=== PATIENT | female | born 1950 | race Caucasian/White ===

== ENCOUNTER 2018-03-03 06:23 | Day surgery (SDC) | payer OTHER ==
[2018-02-28 10:35] LABS: Absolute Lymphocytes (CBC) 1.3 K/uL (0.7-4.9); Absolute Monocytes 0.4 K/uL (0.1-1.3); Absolute Neutrophil 2.7 K/uL (1.8-8.0); Basophils % 0.8 % (0-1.3); Eosinophils % 10.2 % (0-4.4); Lymphocytes % 27.1 % (15.3-44.8); MCH 32.3 pg (27.0-35.0); MCV 93.5 fL (80-100); MPV 9.6 fL (7.6-11.3); Monocytes % 7.3 % (3.3-12.3); RBC Red Blood Cell Count 4.49 M/uL (3.86-4.86)
[2018-02-28 10:49] LABS: Potassium 4.4 mmol/L (3.5-5.1); Protime INR 1.01
[2018-03-03] MEDS ORDERED: NA CHLORIDE 0.9% 1,000 ML ONE (06:35)
[2018-03-03] MEDS ORDERED: CEFAZOLIN/SWI 1gm 1 GM/10 ML SYR ONE (06:36)
[2018-03-03] MEDS ORDERED: PROPOFOL 200 MG/20 ML VIAL IV ONE (07:22)
[2018-03-03] MEDS ORDERED: FENTANYL CITR 100 MCG/2 ML ONE (07:22)
[2018-03-03] MEDS ORDERED: MIDAZOLAM HCL 2 MG/2 ML INJ ONE ×2 (07:22→07:33)
[2018-03-03] MEDS ORDERED: LIDOCAINE 2% MPF 5 ML VIAL ONE (07:22)
[2018-03-03] MEDS ORDERED: ONDANSETRON HCL 40 MG/20 ML VIAL ONE (07:22)
[2018-03-03] MEDS ORDERED: BUPIVACAINE 0.25% PF 10 ML VIAL ONE (07:27)
--- NOTE | 2018-03-03 08:54 | P.BOP ---
Preoperative diagnosis: right knee lateral meniscus tear Postoperative diagnosis: same, chondromalacia medial femoral condyle, lateral femoral condyle Primary procedure: right knee arthroscopic partial lateral meniscectomy Secondary procedure: right knee chondroplasty lateral femoral condyle Make Up Editor: NONE,NONE Estimated blood loss: <5 cc Specimen: none Findings: see dictation Anesthesia: General Complications: None Implants: none Fluids & blood products: per anesthesia; TT: 37 mins @ 300 mmHg Transferred to: Recovery Room Condition: Good
[2018-03-03] MEDS ORDERED: MEPERIDINE HCL 50 MG/ML AMP ONE (09:05)
[2018-03-03] MEDS ORDERED: PROMETHAZINE 25 MG/ML VIAL ONE (09:11)
[2018-03-03] MEDS ORDERED: NA CHLORIDE 0.9% 500 ML ONE (09:34)
[2018-03-03] MEDS: MORPHINE 4 MG/ML SYR ONE ×5 (09:35→09:54)
[2018-03-03] MEDS ORDERED: HYDROCODONE/APAP 7.5/325 MG TAB PO ONE (11:05)
[2018-03-03] MEDS ORDERED: HYDROCODONE/APAP 7.5/325 MG TAB ONE (11:11)
--- NOTE | 2018-03-03 21:51 | OP ---
Date of Procedure: 03/03/2018 Surgeon: Sami Shaw MD Preoperative Diagnosis: Right knee lateral meniscus tear. Postoperative Diagnoses: 1. Right knee lateral meniscus tear. 2. 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 Procedure Performed: Right knee arthroscopic, partial lateral meniscectomy, right knee arthroscopic chondroplasty of lateral femoral condyle. Anesthesia: General LMA. Fluids: Per Anesthesia record. Estimated Blood Loss: Less than 5 cc. Implants: None. Complications: None. Tourniquet Time: 37 minute at 300 mmHg. Indication For Procedure: Rosaura is a 67-year-old female presented to my clinic with physical exam findings and MRI findings consistent with a lateral meniscus tear. I discussed with the patient at length risks and benefits associated with operative and nonoperative treatment. She expressed understanding and elected to proceed with operative treatment. Description Of Procedure: After informed consent was obtained, the patient was identified in the preoperative holding area. The right lower extremity was marked. The patient was taken back to the operative room, transferred to the operating table in supine fashion, and placed under general LMA anesthesia. The right lower extremity was then examined. The patient has full range of motion of right knee. No instability noted. Right lower extremity was then prepped and draped in usual sterile fashion. A time-out was initiated. The correct patient and procedure were confirmed and identified. The patient had received preoperative prophylactic antibiotics. The right lower extremity was then exsanguinated with an Esmarch and the tourniquet was inflated to 300 mmHg. Standard anteromedial and anterolateral portal were created. Arthroscope was brought into the anterolateral portal. Diagnostic arthroscopy was performed. Arthroscope was first brought into the patellofemoral joint where the patient was noted to have grade 4 chondromalacia with the closed bone over the medial femoral condyle. There was some fraying over the undersurface of the patella. The arthroscope was then brought into medial gutter. There were no loose bodies found in the gutter or the lateral gutter. The arthroscope was then brought into the medial compartment. The patient was noted to have some fissuring and grade 2 chondromalacia changes of the medial femoral condyle. The medial meniscus was found to be stable to probing. No significant pathology noted. The arthroscope was then brought into intercondylar notch and the patient was noted to have an intact ACL and PCL. The arthroscope was then brought in the lateral compartment where the patient noted to have a complex tear of the lateral meniscus body and posterior horn. There was a radial component tear at the posterior horn near the posterior root. The tear was then debrided. Partial lateral meniscectomy was then performed using meniscal biters and an arthroscopic shaver to smooth borders. Probe was then introduced. There was no instability noted of the lateral meniscus. The patient was also noted to have chondromalacia of the lateral femoral condyle and full-thickness chondral injury noted. There was a small chondral flap over the lateral femoral condyle and using a meniscal biter and arthroscopic shaver, a chondroplasty was performed and the lateral femoral condyle was debrided with no loose chondral flaps. Arthroscopic instruments were then removed without complications. The portals were approximated using a 3-0 Monocryl. Sterile dressings were applied. Tourniquet was let down. The patient awakened and transferred to PACU in stable condition. Postoperative Plan: She will be weightbearing as tolerated on her right lower extremity. Physical Therapy will be consulted, and she will follow up in my clinic next week for wound check. TIMI/MOSHE Voice ID: [id number] Report ID: [id number] SHANE
== END 2018-03-03 11:25 | disposition home health service (06) ==
LOC: OR 06:23
PROVIDERS: ATTEND Orthopaedic Surgery Sports Medicine
PROC: 0SBC4ZZ Excision of Right Knee Joint, Percutaneous Endoscopic Approach (ICD-10-PCS; principal; 2018-03-03 07:30)
DX: S83.281A Other tear of lateral meniscus, current injury, right knee, initial encounter (principal); M94.261 Chondromalacia, right knee; I10 Essential (primary) hypertension; E07.9 Disorder of thyroid, unspecified
CPT/HCPCS: 29881; 36415; 80048; 85025; 85610; 85730; J0690; J2175; J2250 ×2; J2405; J2550; J3010; J7030

== ENCOUNTER 2018-05-28 18:21 | Emergency (ER) | payer OTHER ==
[2018-05-28] MEDS ORDERED: ACETAMINOPHEN 500 MG TAB ONE (19:44)
[2018-05-28] MEDS ORDERED: HYDROCODONE/CHLORPHEN 5 ML/OSYR ONE (19:44)
--- NOTE | 2018-05-28 19:54 | RAD REPORT ---
EXAM DESCRIPTION: RAD - Chest Pa And Lat (2 Views) - 05/28/2018 7:43 pm CLINICAL HISTORY: COUGH Chest pain. COMPARISON: Chest Single View dated 02/20/2017; CHEST PA AND LAT 2 VIEW dated 08/22/2013; CHEST PA AND LAT 2 VIEW dated 03/01/2009 FINDINGS: The lungs are mildly emphysematous but clear. The heart is mildly prominent. No displaced fractures. IMPRESSION: Mild COPD.
--- NOTE | 2018-05-28 20:20 | ER ---
Nurse's Notes [facility] Name: Rosaura Fernández Age: 67 yrs Sex: Female : 1950 Arrival Date: 05/28/2018 Time: 18:25 Bed 6 Private MD: Cody Callaway Diagnosis: Bronchitis, not specified as acute or chronic Presentation: 05/28 18:38 Presenting complaint: Patient states: yeimi been sick for 3 days now, fever, chills, hj nasal congestion, sore throat, cough; denies taking meds RIBBON TIER; reports nausea;. Transition of care: patient was not received from another setting of care. Onset of symptoms was May 28, 2018. Risk Assessment: Do you want to hurt yourself or someone else? Patient reports no desire to harm self or others. Initial Sepsis Screen: Does the patient meet any 2 criteria? RR > 20 per min. Temp <36.0*C (96.8*F)) or > 38.3*C (100.9*F). HR > 90 bpm. Does the patient have a suspected source of infection? Yes: Productive cough/pneumonia. Care prior to arrival: None. 18:38 Method Of Arrival: Ambulatory 18:38 Acuity: NIRMAL 4 hj Triage Assessment: 18:41 General: Appears in no apparent distress. uncomfortable, Behavior is calm, cooperative, hj appropriate for age. Pain: Complains of pain in throat. EENT: No signs and/or symptoms were reported regarding the EENT system. Neuro: Level of Consciousness is awake, alert, obeys commands, Oriented to person, place, time, situation, Appropriate for age. Cardiovascular: Capillary refill < 3 seconds Patient's skin is warm and dry. Respiratory: Reports cough that is Airway is patent Respiratory effort is even, unlabored, Respiratory pattern is regular, symmetrical. GI: No signs and/or symptoms were reported involving the gastrointestinal system. : No signs and/or symptoms were reported regarding the genitourinary system. Derm: No signs and/or symptoms reported regarding the dermatologic system. Musculoskeletal: No signs and/or symptoms reported regarding the musculoskeletal system. Historical: - Allergies: 18:40 No Known Allergies; hj - Home Meds: 18:40 anastrozole 1 mg oral tab 1 tab once daily [Active]; levothyroxine 50 mcg tab 1 tab hj once daily [Active]; - PMHx: 18:40 breast cancer; hj - PSHx: 18:40 Cholecystectomy; Knee surgery; left mastectomy; hj - Immunization history:: Adult Immunizations up to date. - Social history:: Smoking status: Patient/guardian denies using tobacco, Patient/guardian denies using alcohol. - Ebola Screening: : Patient negative for fever greater than or equal to 101.5 degrees Fahrenheit, and additional compatible Ebola Virus Disease symptoms Patient denies exposure to infectious person Patient denies travel to an Ebola-affected area in the 21 days before illness onset. Screenin:41 Abuse screen: Denies threats or abuse. Denies injuries from another. Nutritional hj screening: No deficits noted. Tuberculosis screening: No symptoms or risk factors identified. Fall Risk None identified. Assessment: 18:42 Reassessment: see triage for assessment;. hj 18:51 Reassessment: awaiting provider at bed side;. hj 19:32 General: Appears in no apparent distress. uncomfortable, Behavior is calm, cooperative, ea appropriate for age, Pt taken to radiology. Neuro: Level of Consciousness is awake, alert, obeys commands, Oriented to person, place, time, situation. Cardiovascular: Patient's skin is warm and dry. Respiratory: Airway is patent Respiratory effort is even, unlabored, Respiratory pattern is regular, symmetrical, Parent/caregiver reports the patient having cough that is. GI: No signs and/or symptoms were reported involving the gastrointestinal system. : No signs and/or symptoms were reported regarding the genitourinary system. Derm: Skin is pink, warm \T\ dry. 20:41 Reassessment: Patient and/or family updated on plan of care and expected duration. Pain ea level reassessed. Patient is alert, oriented x 3, equal unlabored respirations, skin warm/dry/pink. Discharge instructions given to patient, verbalized the understanding of instruction. Vital Signs: 18:42 BP 138 / 87; Pulse 100; Resp 18; Temp 100.7(O); Pulse Ox 95% on R/A; Weight 72.57 kg; hj Height 5 ft. 10 in. (177.80 cm); Pain 5/10; 20:30 BP 128 / 70; Pulse 87; Resp 19; Temp 99; Pulse Ox 96% ; ea 18:42 Body Mass Index 22.96 (72.57 kg, 177.80 cm) ED Course: 18:25 Patient arrived in ED. mr 18:25 Cody Callaway MD is Private Physician. mr 18:38 Chris Avendaño, RN is Primary Nurse. hj 18:40 Triage completed. hj 18:42 Arm band placed on right wrist. hj 18:42 Patient has correct armband on for positive identification. Bed in low position. Call light in reach. Side rails up X 1. 18:53 Manuel Cr NP is PHCP. pm1 18:53 Nino Stevens MD is Attending Physician. pm1 19:42 Chest Pa And Lat (2 Views) XRAY In Process Unspecified. EDMS 20:42 No provider procedures requiring assistance completed. Patient did not have IV access ea during this emergency room visit. Administered Medications: 19:37 Drug: Tussionex Pennkinetic ER 5 ml Route: PO; ea 20:38 Follow up: Response: No adverse reaction; Marked relief of symptoms ea 19:37 Drug: Tylenol 1000 mg Route: PO; ea 20:28 Follow up: Response: No adverse reaction; Marked relief of symptoms ea Outcome: 20:19 Discharge ordered by MD. pm1 20:42 Discharged to home ambulatory, with family. ea 20:42 Condition: good 20:42 Discharge instructions given to patient, Instructed on discharge instructions, follow up and referral plans. medication usage, Demonstrated understanding of instructions, follow-up care, medications, Prescriptions given X 3. 20:46 Patient left the ED. ea Signatures: Dispatcher [employer] [facility] Yuly Romero mr Chris Avendaño RN RN Manuel Cr NP SQL SERVER DBA DEVELOPER pm1 Anita Perez RN RN ea
--- NOTE | 2018-05-28 20:20 | EDPHYS ---
Physician Documentation [facility] Name: Rosaura Fernández Age: 67 yrs Sex: Female : 1950 Arrival Date: 05/28/2018 Time: 18:25 Bed 6 Private MD: Cody Callaway ED Physician Nino Stevens HPI: 05/28 19:30 This 67 yrs old Female presents to ER via Ambulatory with complaints of Cough.pm1 19:30 The patient or guardian reports cough, with no sputum. Onset: The symptoms/episode pm1 began/occurred 3 day(s) ago. Severity of symptoms: in the emergency department the symptoms are actually worse. Modifying factors: The symptoms are alleviated by Tylenol, the symptoms are aggravated by nothing. Associated signs and symptoms: Pertinent positives: chest pain, fever, sore throat, Nasal congestion, chills, Pertinent negatives: chest pain, shortness of breath. The patient has not recently seen a physician, the patient's primary care provider is Dr. Callaway. Historical: - Allergies: 18:40 No Known Allergies; hj - Home Meds: 18:40 anastrozole 1 mg oral tab 1 tab once daily [Active]; levothyroxine 50 mcg tab 1 tab hj once daily [Active]; - PMHx: 18:40 breast cancer; hj - PSHx: 18:40 Cholecystectomy; Knee surgery; left mastectomy; hj - Immunization history:: Adult Immunizations up to date. - Social history:: Smoking status: Patient/guardian denies using tobacco, Patient/guardian denies using alcohol. - Ebola Screening: : Patient negative for fever greater than or equal to 101.5 degrees Fahrenheit, and additional compatible Ebola Virus Disease symptoms Patient denies exposure to infectious person Patient denies travel to an Ebola-affected area in the 21 days before illness onset. ROS: 19:30 Eyes: Negative for injury, pain, redness, and discharge. pm1 19:30 Neck: Negative for injury, pain, and swelling, Cardiovascular: Negative for chest pain, palpitations, and edema. 19:30 Abdomen/GI: Negative for abdominal pain, nausea, vomiting, diarrhea, and constipation, Back: Negative for injury and pain, : Negative for injury, bleeding, discharge, and swelling, MS/Extremity: Negative for injury and deformity, Skin: Negative for injury, rash, and discoloration, Neuro: Negative for headache, weakness, numbness, tingling, and seizure. 19:30 Constitutional: Positive for chills, fever. 19:30 ENT: Positive for sore throat, Nasal congestion. 19:30 Respiratory: Positive for cough, Negative for shortness of breath, sputum production, wheezing. Exam: 19:30 Constitutional: This is a well developed, well nourished patient who is awake, alert, pm1 and in no acute distress. Head/Face: Normocephalic, atraumatic. Eyes: Pupils equal round and reactive to light, extra-ocular motions intact. Lids and lashes normal. Conjunctiva and sclera are non-icteric and not injected. Cornea within normal limits. Periorbital areas with no swelling, redness, or edema. ENT: Nares patent. No nasal discharge, no septal abnormalities noted. Tympanic membranes are normal and external auditory canals are clear. Oropharynx with no redness, swelling, or masses, exudates, or evidence of obstruction, uvula midline. Mucous membranes moist. Neck: Trachea midline, no thyromegaly or masses palpated, and no cervical lymphadenopathy. Supple, full range of motion without nuchal rigidity, or vertebral point tenderness. No Meningismus. Chest/axilla: Normal chest wall appearance and motion. Nontender with no deformity. No lesions are appreciated. Cardiovascular: Regular rate and rhythm with a normal S1 and S2. No gallops, murmurs, or rubs. No pulse deficits. Respiratory: Lungs have equal breath sounds bilaterally, clear to auscultation and percussion. No rales, rhonchi or wheezes noted. No increased work of breathing, no retractions or nasal flaring. Abdomen/GI: Soft, non-tender, with normal bowel sounds. No distension or tympany. No guarding or rebound. No evidence of tenderness throughout. Back: No spinal tenderness. No costovertebral tenderness. Full range of motion. Skin: Warm, dry with normal turgor. Normal color with no rashes, no lesions, and no evidence of cellulitis. MS/ Extremity: Pulses equal, no cyanosis. Neurovascular intact. Full, normal range of motion. 19:30 Neuro: Orientation: is normal, Motor: is normal, moves all fours. Vital Signs: 18:42 BP 138 / 87; Pulse 100; Resp 18; Temp 100.7(O); Pulse Ox 95% on R/A; Weight 72.57 kg; hj Height 5 ft. 10 in. (177.80 cm); Pain 5/10; 20:30 BP 128 / 70; Pulse 87; Resp 19; Temp 99; Pulse Ox 96% ; ea 18:42 Body Mass Index 22.96 (72.57 kg, 177.80 cm) hj MDM: 18:53 Patient medically screened. pm1 20:16 Data reviewed: vital signs. Data interpreted: Pulse oximetry: on room air is 95 %. pm1 Interpretation: normal. 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 05/28 19:19 Order name: Flu; Complete Time: 20:11 pm1 05/28 19:19 Order name: Strep; Complete Time: 20:11 pm1 05/28 19:20 Order name: Chest Pa And Lat (2 Views) XRAY; Complete Time: 20:11 pm1 05/28 20:04 Order name: Throat Culture EDMS Administered Medications: 19:37 Drug: Tussionex Pennkinetic ER 5 ml Route: PO; ea 20:38 Follow up: Response: No adverse reaction; Marked relief of symptoms ea 19:37 Drug: Tylenol 1000 mg Route: PO; ea 20:28 Follow up: Response: No adverse reaction; Marked relief of symptoms ea Disposition: 05/28/18 20:19 Discharged to Home. Impression: Bronchitis, not specified as acute or chronic. - Condition is Stable. - Discharge Instructions: Acute Bronchitis, Adult. - Prescriptions for Medrol (Landry) 4 mg Oral Tablets, Dose Pack - take 1 tablet by ORAL route as directed - follow package instructions; 1 packet. Albuterol Sulfate 90 mcg/actuation - inhale 1-2 puff by INHALATION route every 4-6 hours; 1 Inhaler. Guaifenesin AC 10- 100 mg/5 mL Oral Liquid - take 10 milliliter by ORAL route every 4 hours As needed; 240 milliliter. - Medication Reconciliation Form, Thank You Letter, Antibiotic Education form. - Follow up: Emergency Department; When: As needed; Reason: Worsening of condition. Follow up: Private Physician; When: 2 - 3 days; Reason: Recheck today's complaints, Continuance of care, Re-evaluation by your physician. - Problem is new. - Symptoms have improved. Addendum: 06/08/2018 15:45 Co-signature as Attending Physician, Nino Stevens MD Available for consultation at p s1 all times. . Signatures: Dispatcher [employer] EDMS Chris Avendaño, RN RN Manuel Fletcher NP LIVE HANGER pm1 Anita Perez RN RN ea Singer, Phillip, MD MD ps1 Corrections: (The following items were deleted from the chart) 05/28 20:46 20:19 05/28/2018 20:19 Discharged to Home. Impression: Bronchitis, not specified as ea acute or chronic. Condition is Stable. Forms are Medication Reconciliation Form, Thank You Letter, Antibiotic Education, Prescription Opioid Use. Follow up: Emergency Department; When: As needed; Reason: Worsening of condition. Follow up: Private Physician; When: 2 - 3 days; Reason: Recheck today's complaints, Continuance of care, Re-evaluation by your physician. Problem is new. Symptoms have improved. pm1
== END 2018-05-28 20:46 | disposition home or self-care (01) ==
LOC: ER 18:21
DX: J40 Bronchitis, not specified as acute or chronic (principal)
CPT/HCPCS: 71046; 87070; 87081; 87804; 99283

== ENCOUNTER 2020-04-02 16:32 | Observation (INO) | payer OTHER ==
--- OUTSIDE RECORDS SUMMARY | 2020-04-02 16:34 | XMS REPORT | Continuity of Care Document ---
:1950 Author Organization [facility] t Address [address] [place] [address] Care Team Providers Name Role Phone Lab, Fam Pob I Attending Clinician Unavailable Doctor Unassigned, Name Attending Clinician Unavailable Problems This patient has no known problems. Allergies, Adverse Reactions, Alerts This patient has no known allergies or adverse reactions. Medications This patient has no known medications. Procedures This patient has no known procedures. Encounters Start End Encounter Admission Attending Care Care Encounter Source Date/Time Date/Time Type Type Clinicians Facility Department ID 2020-02-21 2020-02-21 Laboratory Lab, Adc [facility] [id number] 08:46:11 09:06:11 Only Fam Pob I Health [id number] [place] [id number] Professio [phone] [address] 2020-02-21 2020-02-21 Letter Doctor LONNIE [id number] 00:00:00 00:00:00 (Out) UnassignedDEBBI [id number] [place] [facility] [phone] [id number] Results This patient has no known results.
--- OUTSIDE RECORDS SUMMARY | 2020-04-02 16:34 | XMS REPORT | Summary of Care ---
:1950 Author Organization [facility] Address [address] [place] [address] Care Team Providers Name Role Phone Lauri Chamberlain MD Primary Care Provider Encounter Details Date Type Department Care Team Description 02/21/2020 Letter (Out) [facility] Message s Doctor Unassigned, No [address] [facility] [place] [address] [address] [facility] [phone] [place] [address] Allergies Not on Filedocumented as of this encounter (statuses as of 02/21/2020) Medications Not on filedocumented as of this encounter (statuses as of 02/21/2020) Active Problems Not on filedocumented as of this encounter (statuses as of 02/21/2020) Social History Tobacco Use Types Packs/Day Years Used Date Never Assessed Sex Assigned at Date Recorded Not on file documented as of this encounter Last Filed Vital Signs Not on filedocumented in this encounter Plan of Treatment Date Type Specialty Care Team Description 02/21/2020 Laboratory Only Family Medicine Laney Paul, YUE [address] [address] Lab, Adc Fam Pob I Health Maintenance Due Date Last Done Comments HEPATITIS C (HCV) SCREEN 1950 Depression Screening 1961 DTaP,Tdap,and Td Vaccines (1 - Tdap) 1968 Breast Cancer Screening (MAMMOGRAM) 1989 COLON CANCER SCREENING ANNUAL FIT/FOBT 11/11/1999 COLON CANCER SCREENING FIT DNA EVERY 3 YEARS 11/11/1999 COLON CANCER SCREENING SIGMOIDOSCOPY EVERY 5 YEARS 11/11/1999 COLONOSCOPY 11/11/1999 Colorectal Cancer Screening 11/11/1999 Zoster Recombinant Vaccine (SHINGRIX) (1 of 2) 11/11/1999 Medicare Wellness Visit 2014 Osteoporosis Screening 2014 PNEUMOCOCCAL VACCINES 65+ (1 of 1 - PPSV23) 2014 INFLUENZA VACCINE (#1) 2020 documented as of this encounter Results Not on filedocumented in this encounter Insurance Payer Benefit Plan / Subscriber ID Effective Dates Phone Addre ss Type Group MEDICARE MEDICARE PART A [id number] 2014-Elizabeth [phone] & B t 82 [id number] JENS HUBBARD [id number] [employer] AETNA INDEMNITY [id number] 2016-[place] Indemnity t documented as of this encounter
--- OUTSIDE RECORDS SUMMARY | 2020-04-02 16:34 | XMS REPORT | Summary of Care ---
:1950 Author Organization [facility] Address [address] [place] [id number] Care Team Providers Name Role Phone Lauri Chamberlain MD Primary Care Provider Reason for Visit Reason Comments LAB Exposure Encounter Details Date Type Department Care Team Description 02/21/2020 Laboratory Only [facility] Family Lisbeth Paul, FINAL CLEANER [address] [place] [id number] Suspected Covid-19 [facility], [facility] Fam Pob I Virus Infection [address] [place] [address] (Primary D x) [place] [address] Allergies Not on Filedocumented as of this encounter (statuses as of 02/21/2020) Medications Not on filedocumented as of this encounter (statuses as of 02/21/2020) Active Problems Not on filedocumented as of this encounter (statuses as of 02/21/2020) Social History Tobacco Use Types Packs/Day Years Used Date Never Assessed Sex Assigned at Date Recorded Not on file COVID-19 Exposure Response Date Recorded In the last month, have you been in contact with No / Unsure 02/21/2020 9:13 AM CDT someone who was confirmed or suspected to have Coronavirus / COVID-19? documented as of this encounter Last Filed Vital Signs Not on filedocumented in this encounter Nursing Notes Shila Casey MA - 02/21/2020 8:50 AM CDTRosaura Fernández is a 69 year old female here for COVID Screening with a Nasopharyngeal Swab All droplet and contact precautions taken with appropriate PPE worn while interacting with patient. ? Goggles ? N95 Mask ? Gloves ? Gown RR 12 Pulse 69 Ox 95% Patient educated on plan of care for visit, swabbing technique, risks and benefits of test and length of time to receive results. Verbal consent obtained to perform test. CDC Fact Sheet for Patients nCoV Diagnostic Panel dated 08/19/2019 and Factsheet What to Do if Sick with COVID 19 07/30/19 provided. Bilate nares swabbed during COVID19 nasopharyngeal swab. Patient swabbed per appropriate nasopharyngeal technique, and patient tolerated well. Patient was discharged from the testing clinic in stable condition. SHILA CASEY MA 02/21/2020 9:13 AM documented in this encounter Plan of Treatment Name Type Priority Associated Diagnoses Order S chedule COVID-19 (PCR MOLECULAR LAB Routine Suspected Covid-1 9 Virus Expected: 02/21/2020, TESTING) Infection Expires: 2020 Health Maintenance Due Date Last Done Comments [...] Results Not on filedocumented in this encounter Visit Diagnoses Diagnosis Suspected Covid-19 Virus Infection - Kimberly [place] documented in this encounter Additional Health Concerns Infection Onset Date Last Indicated Resolved Time COVID-19 Rule Out 02/21/2020 02/21/2020 documented as of this encounter Insurance Payer Benefit Plan / Subscriber ID Effective Dates Phone Addre ss Type Group MEDICARE MEDICARE PART A [id number] 2014-Elizabeth [phone] Medicare & [address] [id number] JENS HUBBARD [id number] [employer] AETNA INDEMNITY [id number] 2016-Elizabeth rai documented as of this encounter
--- NOTE | 2020-04-02 17:30 | RAD REPORT ---
EXAM DESCRIPTION: Kapil Single View04/02/2020 5:05 pm CLINICAL HISTORY: Chest pain COMPARISON: 2017 FINDINGS: The lungs appear clear of acute infiltrate. The heart is normal size IMPRESSION: No acute abnormalities displayed
[2020-04-02 18:30] LABS: Absolute Lymphocytes (CBC) 1.4 K/uL (0.7-4.9); Basophils % 0.5 % (0-1.3); Hematocrit 41.2 % (36.0-45.0); Lymphocytes % 21.2 % (15.3-44.8); MPV 9.3 fL (7.6-11.3); RBC Red Blood Cell Count 4.42 M/uL (3.86-4.86)
[2020-04-02 18:31] LABS: ALT/SGPT 32 U/L (12-78); AST/SGOT 28 U/L (15-37); Albumin 3.6 g/dL (3.4-5.0); Alkaline Phosphatase 103 U/L (45-117); BUN Blood Urea Nitrogen 19 mg/dL (7-18); Bicarbonate 29 mmol/L (21-32); Bilirubin Direct < 0.1 mg/dL (0-0.2); Bilirubin Total 0.4 mg/dL (0.2-1.0); Glucose Level 101 mg/dL (74-106); Magnesium 2.1 mg/dL (1.8-2.4); NT PRO-BNP 86 pg/mL (<125); Protein, Total 7.2 g/dL (6.4-8.2); Sodium Level 140 mmol/L (136-145); Troponin (Emerg Dept Use Only) < 0.02 ng/mL (0.0-0.045)
--- NOTE | 2020-04-02 19:01 | ER ---
Nurse's Notes [facility] Name: Rosaura Fernández Age: 69 yrs Sex: Female : 1950 Arrival Date: 04/02/2020 Time: 16:33 Bed 6 Private MD: Diagnosis: Chest pain, unspecified Presentation: 04/02 16:41 Chief complaint: Patient states: Left sided chest pain for 24 hours. Radiates into left ll1 arm and shoulder. States she believes she pulled a muscle in her chest. Reports tenderness with palpation to left chest. Dr. Callaway's office sent her in for eval. Denies cough/SOB. Coronavirus screen: Client denies travel out of the [place] in the last 14 days. At this time, the client does not indicate any symptoms associated with coronavirus-19. Ebola Screen: Patient denies travel to an Ebola-affected area in the 21 days before illness onset. Initial Sepsis Screen: Does the patient meet any 2 criteria? No. Patient's initial sepsis screen is negative. Does the patient have a suspected source of infection? No. Patient's initial sepsis screen is negative. Risk Assessment: Do you want to hurt yourself or someone else? Patient reports no desire to harm self or others. Onset of symptoms was April 01, 2020. 16:41 Method Of Arrival: Ambulatory ll1 16:41 Acuity: NIRMAL 3 ll1 Historical: - Allergies: 16:43 No Known Allergies; ll1 - PMHx: 16:43 breast cancer; ll1 - PSHx: 16:43 Cholecystectomy; Knee surgery; bilat mastectomy; ll1 - Immunization history:: Flu vaccine is up to date. - Social history:: Smoking status: Patient denies any tobacco usage or history of. - Family history:: not pertinent. Screenin:16 Abuse screen: Denies threats or abuse. Denies injuries from another. Nutritional zb screening: No deficits noted. Tuberculosis screening: No symptoms or risk factors identified. Fall Risk None identified. No fall in past 12 months (0 pts). No secondary diagnosis (0 pts). IV access (20 points). Ambulatory Aid- None/Bed Rest/Nurse Assist (0 pts). Gait- Normal/Bed Rest/Wheelchair (0 pts) Mental Status- Oriented to own ability (0 pts). Total Petit Fall Scale indicates No Risk (0-24 pts). Assessment: 16:45 Reassessment: EKG performed and given to MD Valenzuela. zb 17:10 General: Appears in no apparent distress. comfortable, well groomed, Behavior is calm, zb cooperative, appropriate for age, Reports Denies fever, feeling ill, chills. Pain: Complains of pain in chest Pain radiates to left arm and back Pain began 2-3 days ago. Neuro: No deficits noted. Level of Consciousness is awake, alert, obeys commands, Oriented to person, place, time, situation. Cardiovascular: Reports chest pain, Denies lightheadedness, nausea, palpitations, shortness of breath, syncope, vomiting, Capillary refill < 3 seconds fingers Chest pain. Respiratory: No deficits noted. Airway is patent. GI: No deficits noted. No signs and/or symptoms were reported involving the gastrointestinal system. : No deficits noted. No signs and/or symptoms were reported regarding the genitourinary system. Derm: No deficits noted. No signs and/or symptoms reported regarding the dermatologic system. Skin is intact, is healthy with good turgor. Musculoskeletal: No deficits noted. No signs and/or symptoms reported regarding the musculoskeletal system. Capillary refill < 3 seconds, Range of motion: intact in all extremities. 18:28 Reassessment: Patient appears in no apparent distress at this time. Patient and/or ph family updated on plan of care and expected duration. Pain level reassessed. Patient is alert, oriented x 3, equal unlabored respirations, skin warm/dry/pink. Vital Signs: 16:30 BP 145 / 96; Pulse 72; Resp 18; Pulse Ox 99% on R/A; Weight 70.31 kg; Height 5 ft. 9 ph in. (175.26 cm); 16:41 BP 150 / 102; Pulse 79; Resp 17; Temp 98.8; Pulse Ox 100% ; Pain 6/10; ll1 17:30 BP 147 / 98; Pulse 80; Resp 16; Pulse Ox 99% on R/A; ph 18:38 BP 145 / 95; Pulse 73; Resp 18; Pulse Ox 100% on R/A; ph 16:30 Body Mass Index 22.89 (70.31 kg, 175.26 cm) ED Course: 16:33 Patient arrived in ED. ds1 16:36 Maru Valenzuela MD is Attending Physician. ma2 16:43 Triage completed. ll1 16:43 Arm band placed on Patient placed in an exam room, on a stretcher. ll1 17:04 XRAY Chest (1 view) In Process Unspecified. EDMS 17:09 Cindy De La Cruz, BHARATH is Primary Nurse. zb 17:15 Patient has correct armband on for positive identification. Placed in gown. Bed in low zb position. Call light in reach. Side rails up X 1. monitoring specialist on. Pulse ox on. NIBP on. Door closed. Noise minimized. Verbal reassurance given. Head of bed. 17:16 No provider procedures requiring assistance completed. Inserted saline lock: 20 gauge zb antecubital area, using aseptic technique. Patient maintains SpO2 saturation greater than 95% on room air. 18:37 Notified ED physician of a critical lab result(s). D-dimer 795. ph 19:00 Cody Callaway MD is Hospitalizing Provider. ma2 19:44 Patient admitted, IV remains in place. intact, No redness/swelling at site. sg Administered Medications: No medications were administered Outcome: 19:00 Decision to Hospitalize by Provider. ma2 19:44 Admitted to Tele accompanied by tech, via wheelchair, room 229, with chart, Report sg called to Estrella SINHA 19:44 Condition: stable 19:44 Instructed on the need for admit, safety practices, Demonstrated understanding of instructions. 19:45 Admitted to Med/surg accompanied by tech, via wheelchair, room 229, Other sbar, ekg rv Report called to estrella sinha 19:45 Condition: good 19:45 Instructed on the need for admit. 19:51 Patient left the ED. rv Signatures: Dispatcher [employer] EDMS Saul Stiles RN RN Jenna Falcon ds1 Jacqueline Savage RN RN Maru Valenzuela MD MD tx2 Maximilian Dubois RN RN rv Cristopher Norman RN RN 1 Cindy De La Cruz, BHARATH RN zb Corrections: (The following items were deleted from the chart) 16:44 16:41 Chief complaint: Patient states: Left sided chest pain for 24 hours. Radiates ll1 into left arm and shoulder. States she believes she pulled a muscle in her chest. Dr. Callaway's office sent her in for eval. Denies cough/SOB. ll1
--- NOTE | 2020-04-02 19:01 | EDPHYS ---
Physician Documentation [facility] Name: Rosaura Fernández Age: 69 yrs Sex: Female : 1950 Arrival Date: 04/02/2020 Time: 16:33 Bed 6 Private MD: ED Physician Maru Valenzuela HPI: 04/02 17:18 This 69 yrs old Female presents to ER via Ambulatory with complaints of Chest ma2 Pain. 17:18 The patient or guardian reports chest pain that is located primarily in the anterior ma2 chest wall, left. Onset: gradually, 1 day(s) ago. Associated signs and symptoms: Pertinent negatives: abdominal pain, dizziness, lower extremity pain, lightheadedness, nausea, recent travel, shortness of breath, vomiting. The chest pain is described as squeezing. Severity of pain: At its worst the pain was moderate in the emergency department the pain has resolved. The patient has experienced similar episodes in the past. pain is on left side. she experience pain only when she cough or left her arm am or move. . Historical: - Allergies: 16:43 No Known Allergies; ll1 - PMHx: 16:43 breast cancer; ll1 - PSHx: 16:43 Cholecystectomy; Knee surgery; bilat mastectomy; ll1 - Immunization history:: Flu vaccine is up to date. - Social history:: Smoking status: Patient denies any tobacco usage or history of. - Family history:: not pertinent. ROS: 17:18 Constitutional: Negative for fever, chills, and weight loss. ma2 17:18 All other systems are negative. Exam: 17:18 Constitutional: This is a well developed, well nourished patient who is awake, alert, ma2 and in no acute distress. Head/Face: Normocephalic, atraumatic. Eyes: Pupils equal round and reactive to light, extra-ocular motions intact. Lids and lashes normal. Conjunctiva and sclera are non-icteric and not injected. Cornea within normal limits. Periorbital areas with no swelling, redness, or edema. ENT: Nares patent. No nasal discharge, no septal abnormalities noted. Tympanic membranes are normal and external auditory canals are clear. Oropharynx with no redness, swelling, or masses, exudates, or evidence of obstruction, uvula midline. Mucous membranes moist. Neck: Trachea midline, no thyromegaly or masses palpated, and no cervical lymphadenopathy. Supple, full range of motion without nuchal rigidity, or vertebral point tenderness. No Meningismus. Chest/axilla: Normal chest wall appearance and motion. mild ttp over left lateral chest r with no deformity. No lesions are appreciated. Cardiovascular: Regular rate and rhythm with a normal S1 and S2. No gallops, murmurs, or rubs. Normal PMI, no JVD. No pulse deficits. Respiratory: Lungs have equal breath sounds bilaterally, clear to auscultation and percussion. No rales, rhonchi or wheezes noted. No increased work of breathing, no retractions or nasal flaring. Abdomen/GI: Soft, non-tender, with normal bowel sounds. No distension or tympany. No guarding or rebound. No evidence of tenderness throughout. Skin: Warm, dry with normal turgor. Normal color with no rashes, no lesions, and no evidence of cellulitis. MS/ Extremity: Pulses equal, no cyanosis. Neurovascular intact. Full, normal range of motion. Neuro: Awake and alert, GCS 15, oriented to person, place, time, and situation. Cranial nerves II-XII grossly intact. Motor strength 5/5 in all extremities. Sensory grossly intact. Cerebellar exam normal. Normal gait. Vital Signs: 16:30 BP 145 / 96; Pulse 72; Resp 18; Pulse Ox 99% on R/A; Weight 70.31 kg; Height 5 ft. 9 ph in. (175.26 cm); 16:41 BP 150 / 102; Pulse 79; Resp 17; Temp 98.8; Pulse Ox 100% ; Pain 6/10; ll1 17:30 BP 147 / 98; Pulse 80; Resp 16; Pulse Ox 99% on R/A; ph 18:38 BP 145 / 95; Pulse 73; Resp 18; Pulse Ox 100% on R/A; ph 16:30 Body Mass Index 22.89 (70.31 kg, 175.26 cm) ph MDM: 16:37 Patient medically screened. ma2 17:18 Differential diagnosis: costochondritis, gastritis, gastroesophageal reflux disease ma2 (GERD), stable angina. HEART Score: History: Slightly Suspicious (0), ECG: Normal (0), Age: > or = 65 years (2), Risk Factors: No Risk Factors Known (0), Troponin: < or = 1 x Normal Limit (0), Total Score = 1. The patient was not given aspirin in the Emergency Department. Data reviewed: vital signs, nurses notes. Counseling: I had a detailed discussion with the patient and/or guardian regarding: the historical points, exam findings, and any diagnostic results supporting the discharge/admit diagnosis, the presence of at least one elevated blood pressure reading (>120/80) during this emergency department visit, the need for outpatient follow up. 17:22 ED course: patient was offered pain medicine, she declined . az2 04/02 16:37 Order name: Basic Metabolic Panel; Complete Time: 18:50 ma2 04/02 16:37 Order name: CBC with Diff; Complete Time: 18:50 ma2 04/02 16:37 Order name: LFT's; Complete Time: 18:50 ma2 04/02 16:37 Order name: Magnesium; Complete Time: 18:50 ma2 04/02 16:37 Order name: NT PRO-BNP; Complete Time: 18:50 ma2 04/02 16:37 Order name: PT-INR; Complete Time: 18:50 ma2 04/02 16:37 Order name: Troponin (emerg Dept Use Only); Complete Time: 18:50 ma2 04/02 16:37 Order name: XRAY Chest (1 view); Complete Time: 18:50 ma2 04/02 17:56 Order name: D-Dimer; Complete Time: 18:50 EDMS 04/02 18:18 Order name: Troponin I [facility] 04/02 18:18 Order name: Troponin I [facility] 04/02 18:51 Order name: CT Chest For PE Angio az2 04/02 19:30 Order name: CT; Complete Time: 19:34 EDMS 04/02 16:37 Order name: EKG; Complete Time: 16:38 ma2 04/02 16:37 Order name: Cardiac monitoring; Complete Time: 16:54 ma2 04/02 16:37 Order name: EKG - Nurse/Tech; Complete Time: 16:54 ma2 04/02 16:37 Order name: IV Saline Lock; Complete Time: 17:17 ma2 04/02 16:37 Order name: Labs collected and sent; Complete Time: 17:57 ma2 04/02 16:37 Order name: O2 Per Protocol; Complete Time: 16:54 [facility] 04/02 16:37 Order name: O2 Sat Monitoring; Complete Time: 16:54 [facility] 04/02 18:18 Order name: EKG Electrocardiogram [facility] 04/02 18:18 Order name: EKG Electrocardiogram [facility] 04/02 18:18 Order name: EKG Electrocardiogram [facility] 04/02 18:18 Order name: EKG Electrocardiogram [facility] Administered Medications: No medications were administered Disposition: 04/02/20 19:00 Hospitalization ordered by Cody Callaway for Observation. Preliminary diagnosis is Chest pain, unspecified. - Bed requested for Telemetry/MedSurg (observation). - Status is Observation. rv - Condition is Stable. - Problem is new. - Symptoms are unchanged. Signatures: Dispatcher [employer] EDTX Shira Singh Pin, MD MD pkl Lasagna, Tonya, RN RN tl1 Maru Valenzuela MD MD ma2 Maximilain Dubois RN RN rv Cristopher Norman RN RN ll1 Corrections: (The following items were deleted from the chart) 17:56 17:28 D-DIMER+COAG.LAB.BRZ ordered. EDTX EDTX 19:35 19:00 Hospitalization Ordered by Cody Callaway MD for Observation. Preliminary diagnosis tl1 is Chest pain, unspecified. Bed requested for Telemetry/MedSurg (observation). Status is Observation. Condition is Stable. Problem is new. Symptoms are unchanged. [facility] 19:51 19:35 04/02/2020 19:00 Hospitalization Ordered by Cody Callaway MD for Observation. rv Preliminary diagnosis is Chest pain, unspecified. Bed requested for Telemetry/MedSurg (observation). Status is Observation. Condition is Stable. Problem is new. Symptoms are unchanged. tl1
--- NOTE | 2020-04-02 19:27 | RAD REPORT ---
EXAM DESCRIPTION: CT - Chest For Pe Angio - 04/02/2020 7:06 pm CLINICAL HISTORY: Chest pain COMPARISON: None. TECHNIQUE: Dynamically enhanced axial 3 mm thick images of the chest were obtained during administra tion of <100> mL Isovue 370 IV contrast. Coronal and oblique reconstruction images were generated and reviewed. Exam utilizes a protocol for optimal evaluation of pulmonary arterial tree. Maximum intensity projections 3D imaging was utilized All CT scans are performed using dose optimization technique as appropriate and may include automated exposure control or mA/KV adjustment according to patient size. FINDINGS: A pulmonary embolus is not seen. A thoracic aortic aneurysm is not noted. A pleural effusion is not seen. A pericardial effusion is not seen. Mild bilateral ground-glass opacities IMPRESSION: Negative for a pulmonary embolism. Mild bilateral ground-glass opacities indicative of a mild alveolitis
--- NOTE | 2020-04-02 21:28 | HP ---
Date of Admission: 04/02/2020 Chief Complaint: Chest pain. 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 She was asked to come to the em ergency room. Sooner after she arrived to the emergency room, I went to the ER and evaluated her and she informed me that her chest pain has been going on since yesterday. Pain is in the left anterior chest area and it does go to her left scapula as well as left side of the neck, left shoulder, and l eft upper arm. Pain gets worse with deep breathing. Denies any cough, shortness of breath. No expe ctoration. No hemoptysis. No fall. No injury. No rash. No fever or chills. No nausea, no vomiti ng. After the patient was evaluated in the ER, she was admitted to the hospital. Allergies: NO KNOWN ALLERGIES. Medications: Anastrozole 1 mg p.o. daily, levothyroxine 150 mcg p.o. daily. Review of Systems: Cardiovascular: As mentioned above. All other systems reviewed and negative. Past Medical History: Allergic rhinitis, hypothyroidism, impaired fasting glucose, hyperlipidemia, p alpitation, PVCs, and breast cancer right side. Past Surgical History: Surgery for retinal tear, right-sided mastectomy in 2016 and left-sided maste ctomy in 2003, hernia repair, cholecystectomy, hemorrhoid surgery. Family History: Significant for father had cerebral aneurysm. Social History: Negative for smoking or alcohol use. Physical Examination: Vital Signs: Temperature 98.8, pulse 79, respiratory rate 17, blood pressure 150/102, oxygen saturat ion 100%. General: Awake, alert, oriented, not in distress. HEENT: Head atraumatic, normocephalic. Conjunctivae nonerythematous. Sclerae white. Mouth, no thr ush or edema noted. Ears/Nose, no mass, lesion, discharge noted. Neck: Supple. No JVD, lymph nodes, bruit, thyromegaly noted. Lungs: Bilateral good equal air entry. Clear to auscultation. No rhonchi. No rales. Heart: Normal heart sounds, no murmur or gallop. Abdomen: Soft, bowel sounds normal. No guarding, rigidity, tenderness, mass, hepatosplenomegaly, dis tention, or bruit noted. Extremities: No leg edema. No calf tenderness. Skin: No rash, ulcer, cellulitis. Lymphatics: No lymph node enlargement in neck, supraclavicular, infraclavicular region. Neuro: No focal neurological deficit. Chest: Unremarkable. External Genitalia: Deferred. Rectal: Deferred. Laboratory Data: White count 6.7, hemoglobin 14, platelets 198. INR 1. D-dimer 795. Sodium 140, p otassium 4, chloride 106, bicarb 29, BUN 19, creatinine 0.83, glucose 101. Liver function tests unre markable. Troponin less than 0.02. EKG shows normal sinus rhythm, no acute ST-T changes. Chest x-r ay, no acute cardiopulmonary changes. CAT scan of the chest per PE protocol negative for pulmonary e mbolism, mild bilateral ground-glass opacity indicating mild alveolitis. Impression: 1.Chest pain. 2.Right breast cancer. 3.Hypothyroidism. 4.Hyperlipidemia. 5.Impaired fasting glucose. 6.Allergic rhinitis. Plan: Admit the patient to hospital for further evaluation and management of this problem. The mami ent is appropriate for observation. We will keep her on telemetry. Get serial cardiac enzymes. We will get a TSH done and tomorrow morning we will get echo and carotid Doppler. We will also order a COVID-19 test for her. Details and plan of treatment disc ussed with her. SATISH/MODL Voice ID: [id number]
[2020-04-02 22:22] LABS: Thyroid Stimulating Hormone 0.015 uIU/mL (0.360-3.740)
[2020-04-02 22:27] VITALS: BMI 23.5
[2020-04-02 23:24] VITALS: O2SAT 95
[2020-04-03 06:18] LABS: Absolute Lymphocytes (CBC) 1.7 K/uL (0.7-4.9); Basophils % 0.5 % (0-1.3); Hematocrit 40.7 % (36.0-45.0); Lymphocytes % 21.9 % (15.3-44.8); MPV 9.1 fL (7.6-11.3); RBC Red Blood Cell Count 4.41 M/uL (3.86-4.86)
[2020-04-03 06:21] LABS: Potassium 3.9 mmol/L (3.5-5.1)
[2020-04-03 08:26] LABS: Blood Morphology Comment NOT SEEN (NOT SEEN); Platelet Estimate ADEQ
[2020-04-03] MEDS ORDERED: REGADENOSON 0.4 MG/5 ML SYR IV ONE (08:53)
[2020-04-03] MEDS ORDERED: ASPIRIN EC 81 MG TAB PO SCH (09:00)
[2020-04-03] MEDS ORDERED: ANASTROZOLE PO SCH (09:00)
[2020-04-03] MEDS ORDERED: HOME MED 1 EA UNK (Levothyroxine Sodium [Levothyroxine Sodium] 150 MCG) PO SCH (09:00)
[2020-04-03] MEDS ORDERED: ONDANSETRON 4 MG/2 ML VIAL IV PRN (11:03)
[2020-04-03] MEDS ORDERED: ACETAMINOPHEN 500 MG TAB PO PRN (11:03)
[2020-04-03] MEDS ORDERED: ACETAMINOPHEN 325 MG TABLET ONE (11:39)
--- NOTE | 2020-04-03 13:00 | RAD REPORT ---
EXAM DESCRIPTION: NM - Rest Stress Cardiac Imaging - 04/03/2020 12:49 pm CLINICAL HISTORY: Chest pain COMPARISON: None. TECHNIQUE: The patient was administered 10.6 mCi of Tc 99m Sestamibi prior to resting SPECT imaging of the heart. The patient was then administered 31.8 mCi of Tc 99m Sestamibi following exercise or ph armacologic stress. Multiplanar SPECT images were reviewed. FINDINGS: The end diastolic volume is 77 ml, the end systolic volume is 16 ml, and the ejection frac tion is 79 %. No stress-induced ischemic changes are identifiable. There is a small fixed defect at the anterosepta l apex. There is a small fixed defect along the inferior wall at the base. These are typical sites fo r diaphragm and breast attenuation artifact. IMPRESSION: No stress-induced ischemic change identified. Anatomic attenuation artifacts create fixed defects at the apex and inferior wall. Ventricular volumes and ejection fraction are well within normal limits.
[2020-04-03 14:29] VITALS: BP 125/76; TEMP 98.1
--- NOTE | 2020-04-04 04:47 | DS ---
Date of Discharge: 04/03/2020 Disposition: Discharged to go home. Physical Examination: HEENT: Unremarkable. Lungs: Clear to auscultation. Heart: Sounds normal. Abdomen: Soft. Bowel sounds normal. No guarding, rigidity, tenderness, or distention. Extremities: No leg edema. Laboratory Data: Yesterday white count 6.7, hemoglobin 14, platelets 198. This morning white count 7.6, hemoglobin 13.8, platelets 195. Yesterday sodium 140, potassium 4, chloride 106, bicarb 29, BUN 19, creatinine 0.83, glucose 101. Liver function tests unremarkable. Troponin less than 0.02. TSH 0.015. Hospital Course: A 69-year-old female patient admitted to the hospital with chest pain complaint. Please see dictated H and P for more information. The patient had left-sided chest pain, and after she came into the emergency room, she was admitted to the hospital. Her UT was ruled out by getting serial cardiac enzymes. When I saw her this morning, she was still complaining of having left-sided chest pain and this appears to be pleuritic in nature. Her pain gets worse with deep breathing. There is no evidence of any rash on the skin surface indicating any zoster type of problem. Chest x-ray was negative. CT scan of the chest per PE protocol was negative for pulmonary embolism. Today, we did obtain echocardiogram results pending. We will follow up on outpatient basis. Stress test was negative for stress-induced ischemia. The patient was discharged to go home in stable condition and I did advise her to reduce her dose of levothyroxine in view of suppressed TSH. We also talked about taking her prednisone for a short time and she is agreeable to do so. Final Diagnoses: 1. Chest pain, atypical. 2. Pleurisy. 3. Hypothyroidism. 4. Right breast cancer. 5. Hyperlipidemia. 6. Impaired fasting glucose. 7. Allergic rhinitis. Discharge Medications And Instructions: 1. Continue all prior home medications except discontinue current levothyroxine, which is 150 mcg and start 125 mcg p.o. daily. 2. Prednisone 10 mg. The patient takes 3 tablets daily for 3 days, then 2 tablets daily for 3 days, then 1 tablet daily for 3 days, then stop, and prescription was sent to her pharmacy from my office. 3. Follow up at my office on 04/09/2020. 4. The patient was advised to monitor her left anterolateral and posterior chest wall site and to notify me if she notices a rash in this area. SATISH/MOSHE Voice ID: [id number] Report ID: [id number] MTDD
--- NOTE | 2020-04-04 08:22 | ECHO ---
HEIGHT: 5 ft 9 in WEIGHT: 159 lb 5 oz DATE OF STUDY: 04/03/[address]: Cody Callaway MD 2-DIMENSIONAL: YES M.MODE: YES DOPPLER: YES COLOR FLOW: YES TDS: YES PORTABLE: DEFINITY: BUBBLE STUDY: DIAGNOSIS: CHEST PAIN CARDIAC HISTORY: CATHERIZATION: NO SURGERY: NO PROSTHETIC VALVE: NO PACEMAKER: NO MEASUREMENTS (cm) DIASTOLIC (NORMALS) SYSTOLIC (NORMALS) IVSd 0.9 (0.6-1.2) LA Diam 3.6 (1.9-4.0) LVEF 65% LVIDd 3.9 (3.5-5.7) LVIDs 2.5 (2.0-3.5) %FS 35% LVPWd 1.1 (0.6-1.2) Ao Diam 2.9 (2.0-3.7) 2 DIMENSIONAL ASSESSMENT: RIGHT ATRIUM: NORMAL LEFT ATRIUM: NORMAL RIGHT VENTRICLE: NORMAL LEFT VENTRICLE: NORMAL TRICUSPID VALVE: MILD TRICUSPID REGURGITATION MITRAL VALVE: MILD MITRAL REGURGITATION PULMONIC VALVE: NORMAL AORTIC VALVE: MILD AORTIC INSUFFIENCY PERICARDIAL EFFUSION: NONE AORTIC ROOT: NORMAL LEFT VENTRICULAR WALL MOTION: NORMAL DOPPLER/COLOR FLOW: NORMAL COMMENTS: NORMAL LEFT VENTRICULAR EJECTION FRACTION 55-60%. NORMAL WALL MOTION. MILD TRICUSPID REGURGTATION, MILD MITRAL REGURGITATION, MILD AORTIC INSUFFIENCY. TECHNOLOGIST: TYLER CALL
--- NOTE | 2020-04-04 08:35 | TREADPHA ---
DX: CHEST PAIN Date of Study: 04/03/2020 Ht: 5' 9 " Wt: 159 lb 5 oz Consulting Physician: NORMA MEDICATIONS: ASPIRIN HISTORY: BREAST CANCER PHYSICIAL EXAMINATION: RESTING B.P.: RESTING H.R.: RESTING EKG: WITHIN NORMAL LIMITS PROTOCOL: PHARMACOLOGIC EXERCISE TIME: 3:30 B.P. AT PEAK STRESS: IMPRESSION: NORMAL BLOOD PRESSSURE RESPONSE. NO STRESS INDUCED ISCHEMIA PER ELECTROCARDIOGRAM. NO ARRHYTHMIA.
== END 2020-04-03 15:00 | disposition home or self-care (01) ==
LOC: ER 16:32 → ERHOLD 18:16 → 2ND 19:48
PROVIDERS: ADMIT Internal Medicine; ATTEND Internal Medicine
DX: R07.89 Other chest pain (principal); R09.1 Pleurisy; Z20.828 Contact with and (suspected) exposure to other viral communicable diseases; E03.9 Hypothyroidism, unspecified; E78.5 Hyperlipidemia, unspecified; R73.01 Impaired fasting glucose; J30.9 Allergic rhinitis, unspecified; Z85.3 Personal history of malignant neoplasm of breast; R94.31 Abnormal electrocardiogram [ECG] [EKG]
CPT/HCPCS: 93005; 93017; 93306; 85025 ×2; 80048 ×2; 36415 ×2; 83735; 85610; 85379; 80076; 84443; 84484 ×3; 84439; 83880; 71275; 71045; 78452; 99285; U0002; Q9967; J2785; J2405; A9500; G0378 ×3